=== PATIENT | female | born 1985 | race Caucasian/White ===

== ENCOUNTER → 2017-03-29 | Outpatient (CLI) | payer OTHER | END | disposition home or self-care (01) | LOC: C.PAPS 16:53 | PROVIDERS: ATTEND Obstetrics & Gynecology | DX: Z12.4 Encounter for screening for malignant neoplasm of cervix (principal) ==

== ENCOUNTER → 2018-02-16 | Outpatient (CLI) | payer OTHER ==
[2018-02-16 12:33] LABS: HEMATOCRIT 38.6 % (37-47); HEMOGLOBIN 13.2 g/dL (12.0-16.0); MEAN CORPUSCULAR HEMOGLOBIN 31.8 pg (25-34); MEAN CORPUSCULAR HGB CONC 34.2 g/dl (32-36); MEAN PLATELET VOLUME 10.9 fL (7.4-10.4); PLATELET COUNT 225 K/uL (130-400); RED CELL DISTRIBUTION WIDTH CV 12.3 % (11.5-14.5); WHITE BLOOD COUNT 5.53 K/uL (4.8-10.8)
== END | disposition home or self-care (01) ==
LOC: C.LAB1850 10:04
PROVIDERS: ATTEND Obstetrics & Gynecology
DX: N93.9 Abnormal uterine and vaginal bleeding, unspecified (principal)

== ENCOUNTER → 2018-02-16 | Outpatient (CLI) | payer OTHER | END | disposition home or self-care (01) | LOC: C.PATHSPEC 12:03 | PROVIDERS: ATTEND Obstetrics & Gynecology | DX: N93.9 Abnormal uterine and vaginal bleeding, unspecified (principal) ==

== ENCOUNTER 2018-03-11 05:38 | Observation (INO) | payer OTHER ==
[2018-03-07 13:57] VITALS: BMI 37.0
[~2018-03-11] VITALS: Ht 170.2 cm; Wt 109.1 kg
[2018-03-11] VITALS (8 sets, daily range): BP systolic 102–141; BP diastolic 65–86; PULSE 68–102; TEMP 36.4–37.2; O2SAT 95–100; Ht 170.2 cm; Wt 109.1 kg
[~2018-03-11 05:38] MED LIST: ACET-1256 PO; ASPI-390 PO; MULT-1027 PO
[2018-03-11] MEDS ORDERED: CEFAZOLIN 3000MG IV PUSH 22.5 ML IV SCH (06:00)
[2018-03-11] MEDS ORDERED: LACTATED RINGER'S 1000ML 1,000 ML IV SCH ×3 (06:00→10:30)
[2018-03-11] MEDS ORDERED: IBUP-1428 PO (06:12)
[2018-03-11] MEDS ORDERED: BUPIVACAINE 0.5 % 5 MG/1 ML MPF 30ML VIAL ONE (06:53)
[2018-03-11] MEDS ORDERED: METHYLENE BLUE 0.5% 10 ML VIAL ONE (06:53)
[2018-03-11] MEDS ORDERED: PROPOFOL IV EMULSION 10 MG/ML 20 ML VIAL IV ONE (07:09)
[2018-03-11] MEDS ORDERED: ROCURONIUM BROMIDE 10 MG/ML 5 ML VIAL IV ONE (07:09)
[2018-03-11] MEDS ORDERED: LIDOCAINE HCL 2% 2 ML VIAL (20MG/ML) ONE (07:09)
[2018-03-11] MEDS ORDERED: MIDAZOLAM HCL 1 MG/ML 2ML VIAL ONE (07:10)
[2018-03-11] MEDS ORDERED: FENTANYL CITRATE INJ 50 MCG/1 ML 2 ML VIAL ONE ×2 (07:10→07:11)
--- NOTE | 2018-03-11 07:10 | History & Physical Bridge Note ---
H&P Re-Evaluation Bridge Note: I have examined the patient, reviewed the History & Physical and in the interval since the performance of the History & Physical I have noted the following changes of clinical significance: No changes noted
[2018-03-11] MEDS ORDERED: ACETAMINOPHEN 1000 MG/100 ML IV IV ONE (07:15)
[2018-03-11] MEDS ORDERED: SCOPOLAMINE 1.5 MG TDSY TD ONE (07:19)
[2018-03-11] MEDS ORDERED: NURSING VERBAL MED ORDER ONE (07:45)
[2018-03-11] MEDS ORDERED: GLYCOPYRROLATE INJ 0.2 MG/ML VIAL ONE (08:13)
[2018-03-11] MEDS ORDERED: ONDANSETRON INJ 2 MG/ML 2 ML VIAL ONE (08:13)
[2018-03-11] MEDS ORDERED: DEXAMETHASONE SOD INJ 4 MG/ML VIAL ONE (08:13)
[2018-03-11] MEDS ORDERED: DiphenhydrAMINE HCL 50 MG/ML VIAL ONE (08:13)
[2018-03-11] MEDS ORDERED: SODIUM CHLORIDE 0.9% INJ 10 ML VIAL ONE (08:13)
[2018-03-11] MEDS ORDERED: NEOSTIGMINE METHYLSULFATE 5 MG/5 ML SYR ONE (08:13)
--- NOTE | 2018-03-11 09:17 | [facility] Post Operative Brief Note ---
Immediate Operative Summary Operative Date Mar 11, 2018. Pre-Operative Diagnosis Menorrhagia, endometriosis, pelvic pain Post-Operative Diagnosis same Procedure(s) Performed TLH, bilateral salpingectomies, cystoscopy Surgeon Dr. Stokes Workforce Planner Surgeon(s) Dr. Rosales Estimated Blood Loss 10 Findings See Below see below Fluids (cc crystalloids) 900 Specimens uterus, cervix, bilateral fallopian tubes Drains cobb Anesthesia Type General Complication(s) none Disposition Accompanied Pt To Recover: yes Disposition: Recovery Room / PACU (uterus normal size, deviated to right. nl bilateral ovaries, fallopian tubes c/w prior tubal. no evid of endometriosis lesions. filmy adhesions of sigmoid to left side wall. nl liver edge)
[2018-03-11] MEDS ORDERED: KETOROLAC TROMETHAMINE 30 MG/ML VIAL ONE (09:27)
[2018-03-11] MEDS ORDERED: ATROPINE SULFATE 0.1 MG/ML 5ML SYR IV PRN (09:30)
[2018-03-11] MEDS ORDERED: HYDROmorphone INJ 2 MG/ML SYR/VIAL IV PRN (09:30)
[2018-03-11] MEDS ORDERED: PHENYLEPHRINE 100MCG/ML 5ML SYR IV PRN (09:30)
[2018-03-11] MEDS ORDERED: ONDANSETRON INJ 2 MG/ML 2 ML VIAL IV PRN ×2 (09:30→10:00)
[2018-03-11] MEDS ORDERED: EpHEDrine SULFATE INJ 50 MG/ML AMP IV PRN (09:30)
--- NOTE | 2018-03-11 09:52 | Discharge Instructions ---
Discharge Instructions Date of Service Mar 11, 2018. Admission Reason for Admission: Menorrhagia, Female Pelvic Pain Discharge Discharge Diagnosis / Problem: after surgery Discharge Goals Goal(s): Routine recovery after surgery Activity Recommendations Activity Limitations: as noted below . Instructions / Follow-Up Instructions / Follow-Up POST OPERATIVE: BOWEL FUNCTION/MEDICATIONS: 1. Constipation pain and discomfort are the most common complaints 5-7 days after surgery. Points 2-6 address the things that can help. 2. Chewing gum can help stimulate the gut and help improve digestion and motility. 3. Milk of Magnesia 1-2 times per day until return of bowel function. 4. Colace is a stool softener that helps. Taking this 2-3 times per day until bowel function returns to normal is highly recommended. 5. Dulcolax is a laxative that may be used if several days have passed without a bowel movement. Alternatively Miralax may be used daily instead. 6. Drink plenty of fluids as this will also reduce constipation. 7. Narcotic pain medications will be prescribed by your physician. They are safe to use and we encourage you to use them. If you are not allergic, ibuprofen will also be prescribed. Many patients will be able to transition off of the narcotic medications to ibuprofen by postoperative day 3. ACTIVITY RECOMMENDATIONS: 1. Get plenty of rest and listen to your body. If you are tired, take a nap. 2. You may shower, but do not take a tub bath until you see your doctor at the 2 week post operative visit. 3. Absolutely NO intercourse and nothing in the vagina until you are examined by your doctor at the 8 week visit. At that visit it will be determined when such activities can be resumed. This can range from 6-12 weeks after your surgery depending on healing time. 4. The main physical activity in the first week should be walking. By the second week you can slowly increase activity. There are no limits on walking up and down stairs. 5. Do not lift more than 5-10 lbs for 4 weeks. Remember the "one-handed rule", i.e. if you can lift something with only one hand it's likely okay. 6. Minimize tube pusher like vacuuming and exercising for 4 weeks. "Overdoing it" can lead to incisions not healing, pain and vaginal bleeding , so again, listen to your body. 7. Driving can be resumed when you feel able. Do not drive within 24 hours of taking a narcotic medication. EXPECTATIONS: 1. Vaginal spotting, bleeding and discharge are common after surgery. There may even be an odor to the discharge which is often related to sutures used in the vagina. If you experience heavy vaginal bleeding, call the office number day or night [phone]. 2. Bladder discomfort is common after surgery from the catheter. This usually resolves in 1-2 weeks. 3. By the end of the 3rd or 4th week you should be feeling much better. It may take up to 6 weeks for your energy levels to return to normal. 4. Narcotic medications have side effects such as: dizziness, headache, nausea and/or vomiting. If you suspect your pain medication is causing problems, call our office and we may be able to prescribe an alternate medication. 5. The skin incisions are often covered with a liquid bandage. This will gradually peel off over time. CALL THE OFFICE IF YOU HAVE ANY OF THE FOLLOWIN. Temperature of 101 degrees or higher. 2. Severe abdominal or pelvic pain not relieved by pain medication. 3. Persistent nausea or vomiting. 4. Increased pain with urination or difficulty urinating. 5. Bright red bleeding that soaks more than 1 pad per hour. CONTACT PHONE NUMBERS: Main Office: [phone] Surgical Nurse: [phone] extension [phone] FOLLOW-UP: Post-Operative Appointments: * Individual instructions will have been given about the timing of your first examination, but this is usually at the end of the second week home. * You will need to call the office at soon after discharge to make the appointment for your post-op check-up if it has not already been scheduled. * Additional information regarding activity, sexual intercourse and when to return to work will be given at this appointment. WE WISH YOU A SPEEDY RECOVERY! Current Hospital Diet Patient's current hospital diet: Discharge Diet Recommended Diet: Regular Diet Procedures Procedures Performed: Robotic-assisted Total Laparoscopic Hysterectomy, bilateral salpingectomy, cystoscopy Pending Studies Studies pending at discharge: yes List of pending studies: pathology Medical Emergencies . Who to Call and When: Medical Emergencies: If at any time you feel your situation is an emergency, please call 911 immediately. . Non-Emergent Contact Non-Emergency issues call your: Recreation Establishment Manager . . "Provider Documentation" section prepared by Ifrah Stokes. . [place] Drug Monitoring Program Search Results: patient reviewed within database, no issues identified
[2018-03-11] MEDS ORDERED: OXYC-57 PO (09:56)
[2018-03-11] MEDS ORDERED: SIMETHICONE 80 MG CHEW PO PRN (10:00)
[2018-03-11] MEDS ORDERED: IBUPROFEN 600 MG TAB PO PRN (10:00)
[2018-03-11] MEDS ORDERED: KETOROLAC TROMETHAMINE 30 MG/ML VIAL IV. PRN (10:00)
[2018-03-11] MEDS ORDERED: OXYCODONE/ACETAMINOPHEN 5-325 TAB PO PRN ×2 (10:00)
[2018-03-11] MEDS ORDERED: ACETAMINOPHEN 325 MG TAB PO PRN (10:00)
[2018-03-11] MEDS ORDERED: IV FLUIDS COMPLETED PRN (10:30)
--- NOTE | 2018-03-11 10:53 | OPERATIVE REPORT ---
DATE OF OPERATION: 03/11/2018 PREOPERATIVE DIAGNOSES: 1. Menorrhagia. 2. History of endometriosis. 3. Female pelvic pain. POSTOPERATIVE DIAGNOSES: 1. Same. 2. No evidence of active endometriosis. PROCEDURE: 1. Total laparoscopic hysterectomy. 2. Bilateral salpingectomies. 3. Cystoscopy. 4. Robotic assistance. SURGEON: Dr. Ifrah Stokes. FISHER TROT LINE: Shirlene Rosales. IV FLUIDS: 900 mL. ESTIMATED BLOOD LOSS: 10 mL. ANESTHESIA: General. URINE OUTPUT: 100 mL. FINDINGS: Uterus normal size but deviated to the right side. Normal ovaries and fallopian tubes bilaterally. Fallopian tubes with evidence of prior tubal ligation. Normal liver edge. Cystoscopy findings with normal bladder filling and normal ureteral jets. INDICATIONS: A 32-year-old 3, para 3 with menorrhagia, history of endometriosis and female pelvic pain who presented to the office with those complaints. She noted heavy and painful periods for 1-3 days, changing products on her heavy days at 1 hour intervals and often soaking through overnight long pads. She can feel the bleeding coming out of her. She has clots that are nickel size. She has a history of endometriosis in herself and in her family. She has tried a Mirena IUD in the past and it did expel. She had tried prior to her seeing me a few months of control pills; however, they did give her migraines and she felt like they gave her side effects that were intolerable. She desired definitive treatment of her abnormal bleeding with hysterectomy. She also wanted evaluation, particularly of the right side for possible pain causes as well as reevaluation of her pelvis for active endometriosis. DESCRIPTION OF PROCEDURE: The patient was taken to the operating room and identified. After adequate general anesthesia was obtained, she was placed in dorsal lithotomy position and prepped and draped in usual sterile fashion. A Evangelista catheter was placed under sterile conditions. A weighted speculum and anterior retractor were placed to visualize the cervix which was grasped on its anterior lip with an Allis clamp. The cervix was sequentially dilated using Hegar dilators to 19. The uterus was sounded to approximately 9.5 cm. A single interrupted suture of 0 Vicryl was placed at 3 o'clock position. The VCare uterine manipulator device was gently placed through the cervical os and the balloon was inflated. The balloon unfortunately easily was able to fall out. A different VCare cup was used of a larger size and the balloon was inflated. The suture material was tied down to the cup and the stabilizing cup was placed. The retractors were removed and attention was turned to the patient's abdomen. A supraumbilical skin incision was made with a scalpel. The Veress needle was placed intraperitoneally with an opening pressure of 7 mmHg. A CO2 pneumoperitoneum was created. The 12 mm trocar was placed under direct visualization using the operative scope intraperitoneally. The patient was placed in steep Trendelenburg. Two Da Michela trocar sites left and right of midline were created by first creating skin incisions and then placing under direct visualization DaVinci trocars. The pelvis was inspected with the findings as noted above. A blunt probe was used to tease the bowel away from the planned operative field which did end up lysing some filmy adhesions. At this point, the laparoscope was removed. The da Michela robot was brought to the patient's bedside. The appropriate instrument arms and camera arm were connected to the appropriate trocars. The camera was introduced. The #1 trocar site had the monopolar huyen placed through it under direct visualization and the #2 robotic arm had the bipolar forceps placed under direct visualization. At this point, the surgeon went to the console. The uterus was elevated to reveal the right infundibulopelvic ligament, round ligament, fallopian tube complex. The ureter was seen coursing well below the planned operative site. The uteroovarian ligament was coagulated sequentially and cut using the monopolar hyuen and the fenestrated bipolar. The round ligament was coagulated and transected. The remaining attachments of the uteroovarian ligament and broad ligament were further taken down sequentially by coagulating and cutting. The leaves of the broad ligament were opened up anteriorly and posteriorly. The bladder flap was created anteriorly towards the midline. The bladder was pushed well away from the planned operative sites. The uterine artery pedicle was skeletonized on the right side. It was coagulated with the fenestrated bipolar and transected using monopolar huyen. Attention was turned to the left infundibular ligament, round ligament, and fallopian tube complex. The ureter was seen coursing well below the planned operative site on this side. The uterine ovarian ligament attachments, broad ligament attachments, round ligament attachments were coagulated and cut sequentially. The anterior and posterior leaves of the broad ligament were opened up into and the bladder flap was begun from left side to meet across towards the right. The bladder was pushed well away from the planned operative field. The uterine artery pedicle on the left side was skeletonized. It was then coagulated and transected sequentially using the bipolar forceps as well as the monopolar huyen. The cardinal ligament attachments on this side were further coagulated and transected. The area of the colpotomy had been well cleared away on the left side. Attention was returned to the right side where the uterine artery pedicles were recoagulated and transected as well as the cardinal ligament attachments. The tissue was pushed well away from the planned colpotomy site on this side. The colpotomy was begun and carried around circumferentially freeing the cervix from the upper vagina. The specimen was brought out vaginally. The remaining stumps of the fallopian tubes that included the fimbriated ends were transected on each side and brought out vaginally to be sent together as specimen. The #1 instrument arm was replaced with a large needle front end driver. A 2-0 V-Loc 90 suture was passed vaginally. The IV methylene blue had been administered. The vaginal cuff was closed in the usual fashion using the suture material and back stitches were placed. A sponge in the vagina that had been maintaining the pneumoperitoneum was removed and no air leak vaginally was noted. The needle front end driver instrument was removed and the #1 instrument arm was undocked. Using this trocar, the assistant baseball coach was able to cut the suture and bring it out of the right-sided trocar using a laparoscopic scissor followed by a laparoscopic needle front end driver. The pelvis was then also irrigated. There were no active bleeding sites. The CO2 pneumoperitoneum was let down and there were still no active bleeding sites. At this point, the cystoscopy took place with the findings as noted above. The trocars were then removed and the robot was brought away from the patient's bedside after the CO2 gas was allowed to escape from the patient's abdomen. The supraumbilical skin incision was reapproximated with 0 Vicryl at the level of fascia followed by 4-0 Vicryl at all incision sites in a subcuticular fashion. The incisions were injected with Marcaine and then dressed with Dermabond. A new Evangelista catheter had been placed under sterile conditions. The patient was returned to supine position and awoke from anesthesia. She was transferred to the recovery room in stable condition. All sponge, lap, needle counts were correct x2. I attest to the content of the Intraoperative Record and any orders documented therein. Any exceptions are noted below. OVIDIO
--- NOTE | 2018-03-11 10:53 | Anesthesiology Progress Note ---
Anesthesia Post Op Note Date & Time Mar 11, 2018 at 10:53 Vital Signs Pain Intensity: 7.0 Vital Signs Past 12 Hours Date Time Temp Pulse Resp B/P (MAP) Pulse Ox O2 Delivery O2 Flow Rate FiO2 03/11/18 10:00 36.5 63 17 124/80 100 Nasal Cannula 2 03/11/18 09:50 72 17 117/78 100 Oxymask 3 03/11/18 09:40 64 18 120/73 100 Oxymask 5 03/11/18 09:30 36.6 60 18 113/69 100 Oxymask 5 03/11/18 06:00 36.7 83 18 130/77 (94) 98 Room Air Notes Mental Status: alert / awake / arousable, participated in evaluation Pt Amnestic to Procedure: Yes Nausea / Vomiting: adequately controlled Pain: adequately controlled Airway Patency, RR, SpO2: stable & adequate BP & HR: stable & adequate Hydration State: stable & adequate Anesthetic Complications: no major complications apparent
[2018-03-11] MEDS ORDERED: CHECK SCOPOLAMINE PATCH PLACEMENT SCH (16:00)
--- NOTE | 2018-03-16 10:22 | DISCHARGE SUMMARY ---
ADMISSION DIAGNOSES: 1. Menorrhagia. 2. History of endometriosis. 3. Female pelvic pain. DISCHARGE DIAGNOSES: Same. PROCEDURE: 1. Total laparoscopic hysterectomy. 2. Bilateral salpingectomies. 3. Cystoscopy. 4. Robotic assistance. BRIEF HISTORY AND HOSPITAL COURSE: A 32-year-old 3, para 3 with menorrhagia and a history of endometriosis and pelvic pain who presented to the office with this complaint. She had heavy and painful periods for days 1 through 3, change in her product and her heaviest days at 1 hour intervals and soaking through her overnight long pads. She can feel the bleeding coming out of her. She had a history of endometriosis in herself and her family; however, recent surgeries to include a laparoscopic tubal did not show any evidence of active endometriosis. She had tried a Mirena in the past and it expelled. She tried a couple months of control pills without benefit and desired definitive hysterectomy. She wanted an evaluation of the right side for possible pain causes as well as an evaluation for possible active endometriosis. She underwent the above-stated procedures without incident. Of note, there was no endometriosis noted at the time of her surgery. The right fallopian tube and ovary were completely mobile. The ovaries were left in situ. Her estimated blood loss was 10 mL. Her postop recovery and course was uncomplicated. On her postop day #0, she was tolerating regular diet, voiding spontaneously without difficulty and ambulating without difficulty and was stable for her discharge to home. She was given appropriate instructions as well as pain medication prescriptions and instructed to follow up in 2 weeks for postoperative checkup.
== END 2018-03-11 18:45 | disposition home or self-care (01) ==
LOC: C.ACU 05:38 → C.MS4N 06:30
PROVIDERS: ADMIT Obstetrics & Gynecology; ATTEND Obstetrics & Gynecology
DX: N92.0 Excessive and frequent menstruation with regular cycle (principal); N80.9 Endometriosis, unspecified; R10.2 Pelvic and perineal pain; E03.9 Hypothyroidism, unspecified; E66.01 Morbid (severe) obesity due to excess calories; Z68.37 Body mass index [BMI] 37.0-37.9, adult
CPT/HCPCS: 58571; S2900